=== PATIENT | male | born 2000 | race Caucasian/White ===

== ENCOUNTER 2020-11-08 15:29 | Emergency (ER) | payer MEDICAID, SELFPAY ==
[2020-11-08 16:05] VITALS: BP 117/69; PULSE 75; RESP 18; TEMP 37.7; O2SAT 100; BMI 20.5
--- NOTE | 2020-11-08 16:27 | ED.MEDCLEAR ---
HPI - Medical Clearance General Chief complaint: Medical Clearance Stated complaint: leg scrape Time Seen by Provider: 11/08/20 16:27 History of Present Illness HPI Narrative: Patient complains of scrapes/puncture wound to right thigh from jumping over a fence today, no numbness weakness or tingling no other injury Related Information Allergies Allergy/AdvReac Type Severity Reaction Status Date / Time No Known Allergies Allergy Unverified 02/06/20 19:11 Review of Systems Review of Systems: Positive for scraped right thigh Negatives are no fever no chills or dizziness no weakness no head injury no neck pain or back pain, no numbness no weakness no tingling no joint pain Yes all other systems are reviewed and are negative PMFSH Past Medical History Source: nursing notes reviewed Medical History (Updated 11/08/20 @ 16:32 by RONAN Hernández) Asthma Surgical History (Updated 11/08/20 @ 16:08 by Shawanda Brito) No history of previous surgery Physical Exam Vital Signs: Vital Signs: Last Vital Signs Temp 99.9 F 11/08/20 16:05 Pulse 75 11/08/20 16:05 Resp 18 11/08/20 16:05 BP 117/69 11/08/20 16:05 Pulse Ox 100 11/08/20 16:05 Body Mass Index 20.5 General appearance is no acute distress Head is no sciatic atraumatic Neck is supple Respiratory no distress Extremities full range of motion x4 Right thigh exam there is a less than dime-sized skin avulsion/abrasion with no surrounding erythema no discharge no swelling and neurovascular intact distal Other extremities normal Neuro no focal motor or sensory deficit Course Course Course Narrative: Right thigh abrasion is irrigated and cleansed with normal saline and dressing placed Patient given a tetanus shot and discharged Discharge Plan Discharge Clinical Impression: Abrasion of right thigh Patient Disposition: Home, Self-Care Additional Instructions: The scrape on her right thigh was cleaned and you were given a tetanus shot Return to the ER immediately for redness pain swelling discharge from the wound any concern about infection or any worse condition
[2020-11-08] MEDS: Diphth,Pertus(ACell),Tet Adult 0.5 ML SYRINGE IM (16:37)
== END 2020-11-08 17:07 | disposition home or self-care (01) ==
LOC: HO.ED 16:53
PROVIDERS: Emergency Provider Emergency Medicine
DX: S70.311A Abrasion, right thigh, initial encounter (principal); J45.909 Unspecified asthma, uncomplicated; W26.8XXA Contact with other sharp object(s), not elsewhere classified, initial encounter; Y93.9 Activity, unspecified; Y92.89 Other specified places as the place of occurrence of the external cause; Y99.9 Unspecified external cause status
CPT/HCPCS: 90471; 90715; 99283; 99284

== ENCOUNTER 2020-11-16 09:31 | Emergency (ER) | payer MEDICAID, SELFPAY ==
[2020-11-16 09:42] VITALS: BP 116/61; PULSE 70; RESP 12; TEMP 36.3; O2SAT 99; BMI 20.2
== END 2020-11-16 12:09 | disposition left against medical advice (07) ==
PROVIDERS: Emergency Provider Emergency Medicine
DX: R05 Cough (principal)
CPT/HCPCS: 99281; 99282

== ENCOUNTER 2024-11-13 15:43 | Emergency (ER) | payer SELFPAY ==
[2024-11-13 16:04] VITALS: BP 100/51; PULSE 70; RESP 16; TEMP 36.2; O2SAT 97; BMI 22.3
--- NOTE | 2024-11-13 16:09 | ED_ITS ---
HPI - Ear Problem General Chief complaint: Ear Problems Stated complaint: Right ear infection? Time Seen by Provider: 11/13/24 18:02 Source: patient Mode of arrival: ambulatory Limitations: no limitations History of Present Illness ED Provider: Alecia Hernandez NP HPI Narrative: Patient is a 24 year old male who presents emergency department for evaluation. He has been experiencing pain to his right ear increasing over the past 2 weeks. Onset after swimming. [place] a bubbling like sensation to the ear followed by pain. Attempted to clean out the ear but made the symptoms only worse. Reports decreased hearing. Denies pain posterior or anterior to the ear. No fevers or chills. No associated neck pain. No active drainage from the ear. Related Data Previous Rx's ?Medication ?Instructions ?Recorded ofloxacin 0.3 % ear drops 10 drp otic (ears) DAILY 7 d ays #5 11/13/24 mL Allergies Allergy/AdvReac Type Severity Reaction Status Date / Time No Known Allergies Allergy Verified 11/13/24 16:08 Review of Systems Review of Systems: Yes all other systems are reviewed and are negative [facility] Past Medical History Attestation statement: The following information was validated with the patient. Source: old records reviewed Medical History Asthma Surgical History No history of previous surgery Social History Social History Unable to assess alcohol history related to: Unknown Use of substances other than those prescribed or required for medical reasons: Unknown Advance Directives: No Advance Directives Information Provided: Yes Physical Exam Vital Signs: Vital Signs: Last Vital Signs Temp 97.8 F 11/13/24 18:44 Pulse 54 11/13/24 18:44 Resp 16 11/13/24 18:44 BP 97/58 L 11/13/24 18:44 Pulse Ox 98 11/13/24 18:44 O2 Del Method Room Air 11/13/24 18:44 BMI result Body Mass Index 22.3 Appearance: Alert.?Oriented to person, place and time. No acute distress.?Normal affect. Eyes: Pupils equal, round and reactive to light.? ENT: Pharynx normal.??Left TM normal, external canals clear. Right TM obscured with impacted cerumen. No active drainage. No mastoid tenderness. Neck: Normal inspection.? Neck supple.??You cervical adenopathy. Full range of motion. CVS: Heart sounds normal. Normal heart rate and rhythm.? Pulses normal.?? Respiratory: No respiratory distress.? Lung sounds clear to auscultation bilaterally??? Skin: Skin warm and dry.? Normal skin color.? Extremities: No lower extremity edema.? Neuro: Moves all extremities spontaneously. Sensation intact bilaterally. Ambulates with normal steady gait. Course Course Course Narrative: This is a rapid medical exam performed by Harvey Rangel NP: Additional HPI, ROS, PE not included below will be deferred to primary provider. Patient is a 24-year-old male presenting with complaint of right ear pain, feels as though he pushed the wax further into his ear. Unable to visualize TM due to cerumen impaction. Plan: needs cerumen removal Medications Administered Discontinued Medications Generic Name Dose Route Start Last Admin Trade Name Freq PRN Reason Stop Dose Admin Docusate Sodium 100 mg 11/13/24 18:08 11/13/24 18:39 Docusate Sodium 100 Mg/10 Ml Liquid PO 11/13/24 18:09 100 mg ONCE ONE Administration Procedures Ear Wax Removal Right Ear: Cerumenolytic Used: Colace Results: Re-examined: some cerumen remains TM Examination: TM(s) intact, normal appearance Ear Canal Exam: other (externa canal erythema) Patient Tolerated Procedure: well Complications: no problems Technique: ear canal irrigated and ear canal curetted Medical Decision Making Medical Decision Making MDM Narrative: Patient is a 24 old male who presents emergency department for evaluation of right ear pain over the past 2 weeks as per HPI. On examination has cerumen impaction to the external canal, unable to visualize the TM. Discussed with the patient irrigation of the external canal, Differential Diagnosis Differential Diagnoses: The differential diagnosis associated with the presentation includes (Acute otitis media, otitis externa, malignant otitis externa, mastoiditis, cerumen impaction) Discharge Plan Discharge Clinical Impression: Otitis externa Patient Disposition: Home, Self-Care Instructions: Swimmer's Ear (ED), How to Use Ear Drops (ED) Additional Instructions: As discussed, instill the drops into the right ear canal, lay on the left side, pull your ear back and upwards, but the drops in. Place a cotton ball to the outside of the ear and stay side-lying for about 5 minutes. Follow-up with a primary care doctor or return with any new or worsening symptoms or concerns. Prescriptions: New ofloxacin 0.3 % drops 10 drp otic (ears) DAILY 7 Days Qty: 5 0RF Referrals: Physician,None [Primary Care Provider, Medical] Print Language: Latvian
[2024-11-13] MEDS: Docusate Sodium 100 MG/10 ML LIQUID PO (18:39)
[2024-11-13 18:44] VITALS: BP 97/58; PULSE 54; RESP 16; TEMP 36.6; O2SAT 98
[2024-11-13 19:51] VITALS: BP 106/60; PULSE 50; RESP 16; TEMP 36.5; O2SAT 99
[2024-11-13 20:04] VITALS: BP 106/60; PULSE 50; RESP 16; TEMP 36.5; O2SAT 99
== END 2024-11-13 20:05 | disposition home or self-care (01) ==
PROVIDERS: Emergency Provider Internal Medicine
DX: H60.91 Unspecified otitis externa, right ear (principal); H61.21 Impacted cerumen, right ear
CPT/HCPCS: 69209; 99283; 99284

== ENCOUNTER 2025-01-20 21:56 | Emergency (ER) | payer OTHER, SELFPAY ==
--- NOTE | ~2025-01-20 | XR_ITS ---
CLINICAL HISTORY: pain injury 2 view left knee Comparison: None provided Findings: No fractures or dislocations. No significant arthritic change or erosions. No joint effusion. No radiopaque foreign body. IMPRESSION: 1. No acute findings. This document has been electronically signed by: Brando Brand MD, PHD on 01/20/2025 23:33:04
[2025-01-20 22:12] VITALS: BP 115/58; PULSE 69; RESP 16; TEMP 36.7; O2SAT 97; BMI 21.7
--- NOTE | 2025-01-21 02:05 | ED_ITS ---
HPI - General Adult General Chief complaint: Extremity Injury, Lower Stated complaint: lt knee injury/pain Time Seen by Provider: 01/21/25 02:03 Source: patient Limitations: no limitations History of Present Illness ED Provider: Nicolle Jacobs PA-C HPI narrative: 24-year-old male presents with left knee pain. Patient states he was attempting to get out of his car, he then developed anterior knee pain. No swelling, no deformity, patient states it is painful when he ambulates. Related Data Previous Rx's ?Medication ?Instructions ?Recorded ofloxacin 0.3 % ear drops 10 drp otic (ears) DAILY 7 d ays #5 11/13/24 mL Allergies Allergy/AdvReac Type Severity Reaction Status Date / Time No Known Allergies Allergy Verified 01/20/25 22:15 Review of Systems Review of Systems: Yes all other systems are reviewed and are negative Constitutional: Constitutional: Denies fatigue and Denies fever(s) Musculoskeletal: Musculoskeletal: Reports arthralgias and Denies joint swelling Endocrine: Endocrine: Denies fatigue PMFSH Past Medical History Attestation statement: The following information was validated with the patient. Medical History Asthma Surgical History No history of previous surgery Social History Social History Unable to assess alcohol history related to: Unknown Advance Directives: No Advance Directives Information Provided: Yes Physical Exam ED Vital Signs: Vital Signs - 24 hr 01/20/25 22:12 01/21/25 02:55 Temperature 98.0 F 98.0 F Pulse Rate 69 69 Respiratory Rate 16 16 Blood Pressure 115/58 L 115/58 L Pulse Oximetry 97 97 Oxygen Delivery Method Room Air Room Air BMI result Body Mass Index 21.7 Const Other: Alert well-appearing Orientation/consciousness: patient oriented x3 Resp Effort & Inspection: normal respiratory effort Cardio Other: Normal peripheral perfusion Skin Other: Warm dry no rash Neuro General: patient oriented x3, gait normal, no focal motor deficits and CN's II- XI intact bilaterally Extrem Other: Able to fully flex and Extend, no swelling no erythema no warmth no ecchymosis Psych Other: Cooperative Medications Administered Discontinued Medications Generic Name Dose Route Start Last Admin Trade Name Freq PRN Reason Stop Dose Admin Acetaminophen 975 mg 01/21/25 02:11 01/21/25 02:48 Acetaminophen 325 Mg Tablet PO 01/21/25 02:12 975 mg ONCE ONE Administration Ibuprofen 600 mg 01/21/25 02:11 01/21/25 02:47 Ibuprofen 600 Mg Tablet PO 01/21/25 02:12 600 mg ONCE ONE Administration Medical Decision Making Medical Decision Making MDM Narrative: 24-year-old male presents with left knee pain. Patient states he was attempting to get out of his car, he then developed anterior knee pain. No swelling, no deformity, patient states it is painful when he ambulates. No chronic issues History: Per patient I have considered the following differential diagnoses: Fracture, dislocation, sprain, Plan: X-ray ordered from triage, it is unremarkable, his exam was unremarkable, he is asking for crutches and a knee immobilizer. We will do so and send with home care instructions I have independently reviewed the following tests: X-ray left knee:Findings: No fractures or dislocations. No significant arthritic change or erosions. No joint effusion. No radiopaque foreign body. IMPRESSION: 1. No acute findings. Differential Diagnosis Differential Diagnoses: The differential diagnosis associated with the presentation includes See medical decision-making Admission/Observation Consideration of admission/observation: Escalation of care including admission/observation considered Not applicable Radiology Impression Discussion of test interpretation with radiology: I have reviewed the radiologist's reading. Discharge Plan Discharge Clinical Impression: Left knee sprain Patient Disposition: Home, Self-Care Instructions: Knee Sprain (ED), P.R.I.C.E. Treatment (ED) Additional Instructions: The x-ray of the knee was normal, you do not have a fracture or dislocation, you have a sprain. See home care instructions. Bear weight as tolerated, use the crutches and knee immobilizer, as needed. Prescriptions: No Action ofloxacin 0.3 % drops 10 drp otic (ears) DAILY 7 Days Qty: 5 0RF Stand Alone Forms: Work/School Release Interventions: ED Discharge Assessment Last Done: 01/21/25 02:55 Discharge Date/Time: 01/21/25 02:58 Print Language: Indonesian
[2025-01-21 02:55] VITALS: BP 115/58; PULSE 69; RESP 16; TEMP 36.7; O2SAT 97
== END 2025-01-21 02:58 | disposition home or self-care (01) ==
PROVIDERS: Emergency Provider Emergency Medicine
DX: S83.92XA Sprain of unspecified site of left knee, initial encounter (principal); X58.XXXA Exposure to other specified factors, initial encounter; Y93.89 Activity, other specified; Y92.9 Unspecified place or not applicable; Y99.9 Unspecified external cause status; M25.562 Pain in left knee
CPT/HCPCS: 73560; 99283

== ENCOUNTER → 2025-01-20 22:25 | Outpatient (BNV) | payer SELFPAY | PROVIDERS: Visit Provider General Practice | DX: S80.912A Unspecified superficial injury of left knee, initial encounter (principal); M25.562 Pain in left knee | CPT/HCPCS: 73560 ==

== ENCOUNTER 2025-01-26 23:07 | Emergency (ER) | payer OTHER, SELFPAY ==
--- NOTE | ~2025-01-26 | XR_ITS ---
CLINICAL HISTORY: pain s p trauma 3 view right ankle Comparison: None provided Findings: Bones intact. No dislocations. No significant arthritic change or erosions. No ankle effusion. No radiopaque foreign body. IMPRESSION: 1. No acute findings. This document has been electronically signed by: Keesha Mitchell MD on 01/26/2025 23:39:48
[2025-01-26 23:12] VITALS: BP 123/72; PULSE 84; RESP 18; TEMP 37.2; O2SAT 98; BMI 21.6
--- NOTE | 2025-01-26 23:34 | ED_ITS ---
HPI - Extremity Injury (Lower) General Chief Complaint: Extremity Injury, Lower Stated Complaint: R Leg and ankle pain Time Seen by Provider: 01/26/25 23:22 History of Present Illness HPI Narrative: Patient is a 24-year-old male presents today with having right ankle pain. He was trying to jump over a gate yesterday and fell. Complaining of pain to the lateral malleolus area. There is no difficulty ambulating. Patient from home. No head injury. Not on blood thinners. Related Data Previous Rx's ?Medication ?Instructions ?Recorded ofloxacin 0.3 % ear drops 10 drp otic (ears) DAILY 7 d ays #5 11/13/24 mL Allergies Allergy/AdvReac Type Severity Reaction Status Date / Time No Known Allergies Allergy Verified 01/26/25 23:14 Review of Systems Review of Systems: Positive right ankle pain Yes all other systems are reviewed and are negative [facility] Past Medical History Attestation statement: The following information was validated with the patient. Medical History Asthma Surgical History No history of previous surgery Social History Social History Unable to assess alcohol history related to: Unknown Advance Directives: No Advance Directives Information Provided: No Physical Exam Exam: Exam: Appearance: Alert. Oriented X3. No acute distress. Eyes: Pupils equal, round and reactive to light. ENT: Pharynx normal. Neck: Normal inspection. Neck supple. No lymph nodes noted. No crepitus CVS: Normal heart rate and rhythm. Pulses normal. Normal S1 and S2 Respiratory: No respiratory distress. Breath sounds normal. No Wheezing. No rales Abdomen: Soft and nontender. No rigidity. No distention. good BS x4 Skin: Skin warm and dry. Normal skin color. Normal skin turgor. Extremities: No lower extremity edema. Examination of the right ankle showed anterior lateral malleolar tenderness. There is no posterior lateral malleolar tenderness. Patient is has no pain at the base of the 5th metatarsal. Has good range of motion. Has good sensation. Has good capillary refill. Has good pulses at dorsalis pedis. Neuro: Oriented X 3. No motor deficit. No sensory deficit. Moving all exter mities. No slurred speech Vital Signs: Vital Signs: Last Vital Signs Temp 98.9 F 01/26/25 23:12 Pulse 84 01/26/25 23:12 Resp 18 01/26/25 23:12 BP 123/72 01/26/25 23:12 Pulse Ox 98 01/26/25 23:12 O2 Del Method Room Air 01/26/25 23:12 BMI result Body Mass Index 21.6 Medications Administered Discontinued Medications Generic Name Dose Route Start Last Admin Trade Name Ishmael PRN Reason Stop Dose Admin Ibuprofen 600 mg 01/26/25 23:24 01/26/25 23:33 Ibuprofen 600 Mg Tablet PO 01/26/25 23:25 600 mg ONCE ONE Administration Medical Decision Making Medical Decision Making [facility] Narrative: My interpretation of patient's x-ray showed no acute fracture. I reviewed radiology's reading which was the same. Will discharge patient home. Ice Motrin for pain. Differential Diagnosis Differential Diagnoses: The differential diagnosis associated with the presentation includes Fracture contusion sprain Admission/Observation Consideration of admission/observation: Escalation of care including admission/observation considered No fracture will discharge home Lab Data [facility] Lab Attestation statement: I reviewed the patient's lab results. Independent Interpretation I performed an independent interpretation of an: Plain X-Ray (X-ray showed no fracture) Radiology Impression Discussion of test interpretation with radiology: I have reviewed the radiologist's reading. Social Determinants Patient?s care significantly limited by Social Determinants of Health including: Problems related to primary support group Discharge Plan Discharge Clinical Impression: Ankle sprain and strain Patient Disposition: Home, Self-Care Instructions: Ankle Sprain (DC) Prescriptions: No Action ofloxacin 0.3 % drops 10 drp otic (ears) DAILY 7 Days Qty: 5 0RF Referrals: [facility] [Physician, Medical] - 01/29/25 Print Language: Greenlandic
== END 2025-01-27 01:30 | disposition home or self-care (01) ==
PROVIDERS: Emergency Provider Emergency Medicine Emergency Medical Services
DX: S96.911A Strain of unspecified muscle and tendon at ankle and foot level, right foot, initial encounter (principal); S93.401A Sprain of unspecified ligament of right ankle, initial encounter; W18.09XA Striking against other object with subsequent fall, initial encounter; Y93.89 Activity, other specified; Y92.89 Other specified places as the place of occurrence of the external cause; Y99.8 Other external cause status
CPT/HCPCS: 73610; 99282; 99283

== ENCOUNTER → 2025-01-26 23:22 | Outpatient (BNV) | payer SELFPAY | PROVIDERS: Emergency Provider Emergency Medicine Emergency Medical Services; Visit Provider Radiology Diagnostic Radiology | DX: M25.571 Pain in right ankle and joints of right foot (principal); W17.89XA Other fall from one level to another, initial encounter | CPT/HCPCS: 73610 ==